=== PATIENT | female | born 1950 | race Caucasian/White ===

== ENCOUNTER 2021-03-30 09:05 | Outpatient (REF) | payer MEDICARE, SELFPAY ==
--- NOTE | ~2021-03-30 | MM_ITS ---
EXAMINATION: BONE DENSITOMETRY CLINICAL INDICATION: Osteoporosis. COMPARISON: Previous BD dated 07/21/2017 and baseline BD dated 11/16/2006. TECHNIQUE: Using a [employer] DXA System (software version: 13.1) manufactured by [employer], dual-energy x-ray absorptiometry was performed of the lumbar spine and left hip. The images are of good technical quality. Summary results are attached. FINDINGS: AP SPINE L1-L4: Current: BMD 0.865 g/cm2, Z-score -0.4, T-score -2.6, osteoporosis, 1.2% increase from previous, 12.4% decrease from baseline (<5% change is not significant). Prior: BMD 0.855 g/cm2. Baseline: BMD 0.988 g/cm2. LEFT FEMUR, NECK: Current: BMD 0.769 g/cm2, Z-score 0.2, T-score -1.9, osteopenia. Prior: BMD 0.738 g/cm2. Baseline: BMD 0.756 g/cm2. LEFT FEMUR, TOTAL: Current: BMD 0.789 g/cm2, Z-score 0.2, T-score -1.7, osteopenia, 0.1% decrease from previous, 6.4% decrease from baseline (<5% change is not significant). Prior: BMD 0.790 g/cm2. Baseline: BMD 0.843 g/cm2. IDENTIFIED RISK FACTORS: Early menopause, secondary osteoporosis. HISTORY OF FRACTURE: None listed. MEDICATIONS: Vitamin D. MM/XR DEXA axial skeleton IMPRESSION: 1. DIAGNOSIS: Osteoporosis based on the lowest T-score value of -2.6 in the lumbar spine applying World Health Organization criteria. 2. 10-YEAR FRACTURE RISK PREDICTION, FRAX: Major osteoporotic fracture (clinical spine, forearm, hip or shoulder) 10.0%. Hip fracture 2.3%. 3. Treatment Recommendations: NOF guidelines recommend consideration for treatment in postmenopausal women and men age 50 and older presenting with the following: -A hip or vertebral (clinical or morphometric) fracture. -T-score less than or equal to -2.5 at the femoral neck or spine after appropriate evaluation to exclude secondary causes. -Low bone mass at the hip or spine and a 10-year fracture probability by FRAX of greater than or equal to 3% for hip fracture or greater than or equal to 20% for major osteoporotic fracture based on the [place] adapted WHO algorithm. 4. Other Recommendations: All treatment decisions require clinical judgment and consideration of individual patient factors, including patient preferences, comorbidities, previous drug use, risk factors not captured in the FRAX model (e.g. frailty, falls, vitamin D deficiency, increased bone turnover, interval significant decline in bone density) and possible under or overestimation of fracture risk by FRAX. Additional medical evaluation for secondary cause of low bone mineral density may be appropriate. FUTURE SCAN RECOMMENDATION: People with diagnosed cases of osteoporosis or at high risk for fracture should have regular bone mineral density tests. For patients eligible for Medicare, routine testing is allowed once every 2 years. The testing frequency can be increased to one year for patients who have rapidly progressing disease, those who are receiving or discontinuing medical therapy to restore bone mass, or have additional risk factors.
== END 2021-03-30 09:06 | disposition home or self-care (01) ==
LOC: HO.MAMMO 09:05
PROVIDERS: Visit Provider Internal Medicine
DX: Z13.820 Encounter for screening for osteoporosis (principal); M81.0 Age-related osteoporosis without current pathological fracture; Z79.899 Other long term (current) drug therapy
CPT/HCPCS: 77080

== ENCOUNTER 2021-06-07 11:06 | Outpatient (REF) | payer MEDICARE, SELFPAY | END 2021-06-07 11:07 | disposition home or self-care (01) | LOC: HO.LAB 11:06 | PROVIDERS: PCP Internal Medicine; Visit Provider Internal Medicine | DX: Z20.822 Contact with and (suspected) exposure to COVID-19 (principal) | CPT/HCPCS: C9803; U0003; U0005 ==

== ENCOUNTER → 2022-06-22 10:12 | Outpatient (BNVA) | payer MEDICARE, SELFPAY | PROVIDERS: PCP Internal Medicine; Visit Provider Surgery | DX: R19.4 Change in bowel habit (principal) | CPT/HCPCS: 99202 ==

== ENCOUNTER 2024-04-26 11:00 | Outpatient (REF) | payer MEDICARE, SELFPAY ==
--- NOTE | ~2024-04-26 | MM_ITS ---
EXAMINATION: BONE DENSITOMETRY CLINICAL INDICATION: Menopause. COMPARISON: Previous BD dated 03/30/2021 and baseline BD dated 11/16/2006. TECHNIQUE: Using a [employer] DXA System (software version: 13.1) manufactured by [employer], dual-energy x-ray absorptiometry was performed of the lumbar spine and left hip. The images are of good technical quality. Summary results are attached. FINDINGS: LEFT FEMUR, NECK: Current: BMD 0.740 g/cm2, Z-score 0.2, T-score -2.1, osteopenia. Prior: BMD 0.769 g/cm2. Baseline: BMD 0.756 g/cm2. LEFT FEMUR, TOTAL: Current: BMD 0.738 g/cm2, Z-score 0.0, T-score -2.1, osteopenia, 6.5% decrease from previous, 12.5% decrease from baseline (<5% change is not significant). Prior: BMD 0.789 g/cm2. Baseline: BMD 0.843 g/cm2. AP SPINE L1-L4: Current: BMD 0.823 g/cm2, Z-score -0.6, T-score -3.0, osteoporosis, 4.9% decrease from previous, 16.7% decrease from baseline (<5% change is not significant). Prior: BMD 0.864 g/cm2. Baseline: BMD 0.988 g/cm2. IDENTIFIED RISK FACTORS: Menopause, low body weight, low calcium intake, alcohol (3 or more units per day). HISTORY OF FRACTURE: None listed. MEDICATIONS: Vitamin D. MM/XR DEXA axial skeleton IMPRESSION: 1. DIAGNOSIS: Osteoporosis based on the lowest T-score value of -3.0 in the lumbar spine applying World Health Organization criteria. 2. 10-YEAR FRACTURE RISK PREDICTION, FRAX: According to the guidelines, FRAX calculation should only be performed on patients in the osteopenia bone density category. Therefore, FRAX was not performed on this patient. 3. Treatment Recommendations: NOF guidelines recommend consideration for treatment in postmenopausal women and men age 50 and older presenting with the following: -A hip or vertebral (clinical or morphometric) fracture. -T-score less than or equal to -2.5 at the femoral neck or spine after appropriate evaluation to exclude secondary causes. -Low bone mass at the hip or spine and a 10-year fracture probability by FRAX of greater than or equal to 3% for hip fracture or greater than or equal to 20% for major osteoporotic fracture based on the [place] adapted WHO algorithm. 4. Other Recommendations: All treatment decisions require clinical judgment and consideration of individual patient factors, including patient preferences, comorbidities, previous drug use, risk factors not captured in the FRAX model (e.g. frailty, falls, vitamin D deficiency, increased bone turnover, interval significant decline in bone density) and possible under or overestimation of fracture risk by FRAX. Additional medical evaluation for secondary cause of low bone mineral density may be appropriate. FUTURE SCAN RECOMMENDATION: People with diagnosed cases of osteoporosis or at high risk for fracture should have regular bone mineral density tests. For patients eligible for Medicare, routine testing is allowed once every 2 years. The testing frequency can be increased to one year for patients who have rapidly progressing disease, those who are receiving or discontinuing medical therapy to restore bone mass, or have additional risk factors.
== END 2024-04-26 11:01 | disposition home or self-care (01) ==
LOC: HO.MAMMO 11:00
PROVIDERS: PCP Internal Medicine; Visit Provider Internal Medicine
DX: Z13.820 Encounter for screening for osteoporosis (principal); Z78.0 Asymptomatic menopausal state
CPT/HCPCS: 77080

== ENCOUNTER 2024-08-13 18:06 | Outpatient (REF) | payer MEDICARE, SELFPAY ==
--- NOTE | ~2024-08-13 | MR_ITS ---
EXAMINATION: MR BRAIN WITHOUT CONTRAST CLINICAL INFORMATION: Memory loss. COMPARISON: Brain MRI from 04/27/2020. TECHNIQUE: MRI of the brain was obtained using routine sequences without contrast. FINDINGS: No focal restricted diffusion is demonstrated to suggest acute or subacute cerebral ischemia. No evidence of acute or chronic hemorrhagic products on heme-sensitive imaging. Scattered and partially confluent periventricular, deep white matter, and brainstem T2 FLAIR hyperintensities consistent with moderate underlying microangiopathy. Proportional prominence of the ventricles and sulcal spaces without evidence of obstructive hydrocephalus. No abnormal mass effect. No midline shift. Normal appearance of the pituitary gland. Normal positioning of the cerebellar tonsils. Normal arterial and venous vascular flow voids are present. Normal, homogeneous marrow signal. Mild mucosal thickening of the paranasal sinuses. Mild rightward nasal septal deviation. No signal abnormalities within the mastoids. MR/MR head/brain wo con IMPRESSION: 1. No acute intracranial abnormalities. 2. Moderate underlying microangiopathy and generalized cerebral volume loss. Electronically signed by: Canelo Llamas DO 08/13/2024 09:21 PM EDT
== END 2024-08-13 18:07 | disposition home or self-care (01) ==
LOC: HO.MRI 18:06
PROVIDERS: PCP Internal Medicine; Visit Provider Internal Medicine
DX: R41.3 Other amnesia (principal)
CPT/HCPCS: 70551

== ENCOUNTER 2025-05-05 09:53 | Outpatient (REF) | payer MEDICARE, SELFPAY ==
--- NOTE | 2025-05-05 | EEG_ITS ---
Description: This is a routine waking EEG using the 10-20 electrode placement system. The waking background activity consists of low-voltage fast frequency seen diffusely intermixed with low-voltage posterior 8-9 hertz alpha frequency. Photic stimulation is without activation. Hyperventilation produces no change in the background activity. No focal, lateralizing or paroxysmal discharges are seen. Impression: This waking EEG is within normal limits MTDD
--- OUTSIDE RECORDS SUMMARY | 2025-05-05 10:28 | XMS_ITS | Patient Health Record ---
Author Organization [facility] Address [address] [facility] [address] [place] [address] Care Team Providers Care Construction Project Coordinator Name Role Phone KHRIS HARPER Primary Care Provider Allergies Allergen (clinical drug ingredient) Drug/Non Drug Allergy documented on EMR Reaction Allergy Type Onset Date Status Contrast Dye (uncoded) rash Allergy Active Penicillin (uncoded) rash Allergy Active Substance with sulfonamide structure and antibacterial mechanism of action (substance) Sulfa (uncoded) rash Allergy Active Reason For Referral No Information Medications Medication SIG (Take, Route, Frequency, Duration) Notes Start Date End Date Status tiZANidine HCl 2 MG 0.5 tablet Oral once at bedtime Active chlordiazePOXIDE-Amitripty line 5-12.5 MG 1 tablet Orally once at bedtime Active Aspirin Adult Low Dose 81 MG as directed Orally Active Vitamin D3 50 MCG (1999 [place]) 1 capsule Orally Once a day; Duration: 30 day(s) Active PARoxetine HCl ER 12.5 MG 1 tablet Orally Once a day Active Social History Tobacco Use: Social History Observation Description Date Details (start date - stop date) Former Smoker NA - NA Tobacco Use (form): Question Answer Notes Are you a: former smoker When did you start smoking? started at the age o f 17 When did you stop smoking? quit in 1990 How long has it been since you last smoked? > 10 years Additional Findings: Tobacco Non-User Ex-light c igarette smoker (1-9/day) Problems Problem Type SNOMED Code ICD Code Onset Dates Problem Status W/U Status Risk Notes Problem Aortic atherosclerosis (I70.0) Active confirmed Plan Of Treatment Pending Test Test Name Order Date Stress Echocardiogram 12/17/2019 Echocardiogram w/ Doppler 12/17/2019 Abdominal Aortic US 12/17/2019 Insurance Providers Payer Name Payer Address Payer Phone Subscriber Number Group Number Insured Name Patient Relationship to Insured Coverage Start Date Coverage End Date [facility] [employer] PPO [address] [place] [address] [id number] DIANE FOX Self - patient is the insured Medical (General) History Medical History History ICD Code Anxiety Muscles spasms Headaches Osteopenia 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
--- OUTSIDE RECORDS SUMMARY | 2025-05-05 10:28 | XMS_ITS | Clinical Summary ---
Author Organization [facility] Address [address] [place] [phone] Phone Care Team Providers Care Mock Up Builder Name Role Phone Wero Clemens MD Primary Care Provider [phone] Encounters Date Type Department Care Team Description 03/19/2025 10:31 AM EDT - 03/19/2025 11:59 PM EDT [facility] [address] [phone] Encounter for screening mammogram for breast cancer Discharge Disposition: Home or Self Care from Last 3 Months Surgical History Surgery Date Site/Laterality Comments STEREOTACTIC CORE BIOPSY Left Family History Medical History Relation Name Comments Breast cancer Maternal Grandmother Relation Name Status Comments Maternal Grandmother Social History Tobacco Use Types Packs/Day Years Used Date Smoking Tobacco: Never Assessed Comments No Sex and Gender Information Value Date Recorded Sex Assigned at Not on file Legal Sex Female 1:08 PM EST Gender Identity Not on file Sexual Orientation Not on file Obstetrics History Para Term AB IAB SAB Ectopic Multiple Livin g Live Births 2 Last Filed Vital Signs Vital Sign Reading Time Taken Comments Blood Pressure - - Pulse - - Temperature - - Respiratory Rate - - Oxygen Saturation - - Inhaled Oxygen Concentration - - Weight 46.3 kg (102 lb) 03/19/2025 10:46 AM EDT Height 170.2 cm (5' 7 ) 03/19/2025 10:46 AM EDT Body Mass Index 15.98 03/19/2025 10:46 AM EDT Plan of Treatment Health Maintenance Due Date Last Done Comments DTaP,Tdap,and Td Vaccines (1 - Tdap) 1968 Pneumococcal Vaccine: 50+ Years (1 of 1 - PCV) 1999 Zoster Vaccines (1 of 2) 1999 Depression Screening 09/27/2022 Falls Risk Assessment 09/27/2022 Medicare Annual Wellness Visit 09/27/2022 Osteoporosis Screening (Bone Density Screening) 09/27/2022 Social Influencers of Health Screening 09/27/2022 RSV Immunization Adult Patients (1 - 1-dose 75+ series) 2024 COVID-19 Vaccine ( season) 2024 09/03/2021, 02/02/2021, 01/05/2021 Influenza Vaccine (#1) 2025 Cholesterol Screening (Lipid Panel) 08/05/2027 08/05/2022 Hepatitis C Screening Completed 08/02/2019 Breast Cancer Screening Discontinued 03/19/20, 03/14/2024, 08/08/2022, Additional history exists HIB Vaccines Aged Out No longer eligi ble based on patient's age to complete this topic HPV Vaccines Aged Out No longer eligi ble based on patient's age to complete this topic Hepatitis A Vaccines Aged Out No long er eligible based on patient's age to complete this topic Hepatitis B Vaccines Aged Out No long er eligible based on patient's age to complete this topic IPV Vaccines Aged Out No longer eligi ble based on patient's age to complete this topic MMR Vaccines Aged Out No longer eligi ble based on patient's age to complete this topic Meningococcal ACWY Vaccine Aged Out N o longer eligible based on patient's age to complete this topic Meningococcal B Vaccine Aged Out No l onger eligible based on patient's age to complete this topic RSV Immunization Patients Under 20 months Aged Out No longer eligible based on patient's age to complete this topic Varicella Vaccines Aged Out No longer eligible based on patient's age to complete this topic Procedures Procedure Name Priority Date/Time Associated Diagnosis Comments MG MAMMO DIGITAL SCREENING W QUINCY BILAT Routine 03/19/2025 11:06 AM EDT Encounter for screening mammogram for breast cancer from Last 3 Months Results * MG Mammo Digital Screening w Quincy bilat (03/19/2025 11:06 AM EDT) Anatomical Region Laterality Modality Breast Bilateral Mammography 03/19/2025 5:05 PM EDT Impressions 03/19/2025 5:11 PM EDT No mammographic evidence of malignancy. No suspicious interval change. A negative mammogram in the presence of a clinically suspicious palpable abnormality does not preclude the possibility of malignancy or alter the indications for biopsy. ASSESSMENT: BI-RADS 2: BENIGN RECOMMENDATION(S): 1: Routine screening mammogram BILATERAL in 1 year. [facility] [address], [address] -------- FINAL REPORT -------- Dictated By: Shahbaz Grossman Dictated Date: 03/19/2025 17:05 ET Assigned Physician: Shahbaz Grossman Reviewed and Electronically Signed By: Shahbaz Grossman Signed Date: 03/19/2025 17:11 ET Workstation ID: [id number] Transcribed By: Self Edit Transcribed Date: 03/19/2025 17:05 ET Narrative 03/19/2025 5:11 PM EDT EXAM: SCREENING MAMMOGRAPHY, BILATERAL HISTORY: SCREENING. Maternal grandmother with history of breast cancer. COMPARISON: 03/14/24, 08/08/22, 08/06/21, 08/04/20 TECHNIQUE: Synthesized CC and MLO projections of each breast. Tomosynthesis of each breast in the CC and MLO projections. ADDITIONAL IMAGING: None Computer-aided detection was employed with the Leho AI 3-D. TISSUE DENSITY: There are scattered areas of fibroglandular density. (BI-RADS category B) FINDINGS: RIGHT BREAST: No suspicious mass. No suspicious calcification. No distortion. Small masses in the lower outer right breast have waxed and waned. LEFT BREAST: No suspicious mass. No suspicious calcification. No distortion. No suspicious finding in the region of a biopsy site marker. Procedure Note Shahbaz Grossman MD - 03/19/2025 EXAM: SCREENING MAMMOGRAPHY, BILATERAL HISTORY: SCREENING. Maternal grandmother with history of breastcancer. COMPARISON: 03/14/24, 08/08/22, 08/06/21, 08/04/20 TECHNIQUE: Synthesized CC and MLO projections of each breast.Tomosynthesis of each breast in the CC and MLO projections. ADDITIONAL IMAGING: None Computer-aided detection was employed with the iCAD ProFound AI 3-D. TISSUE DENSITY: There are scattered areas of fibroglandular density.(BI-RADS category B) FINDINGS: RIGHT BREAST: No suspicious mass. No suspicious calcification. No distortion. Smallmasses in the lower outer right breast have waxed and waned. LEFT BREAST: No suspicious mass. No suspicious calcification. No distortion. Nosuspicious finding in the region of a biopsy site marker. IMPRESSION: No mammographic evidence of malignancy. No suspicious interval change. A negative mammogram in the presence of a clinically suspicious palpableabnormality does not preclude the possibility of malignancy or alter theindications for biopsy. ASSESSMENT: BI-RADS 2: BENIGN RECOMMENDATION(S): 1: Routine screening mammogram BILATERAL in 1 year. [facility] [address], [address] -------- FINAL REPORT -------- Dictated By: Shahbaz Grossman Dictated Date: 03/19/2025 17:05 ET Assigned Physician: Shahbaz Grossman Reviewed and Electronically Signed By: Shahbaz Grossman Signed Date: 03/19/2025 17:11 ET Workstation ID: [id number] Transcribed By: Self Edit Transcribed Date: 03/19/2025 17:05 ET us Self Referral Sppl IMG BI PROCEDURES Final Resul t from Last 3 Months Insurance BLUE CROSS - [place] MEDICARE ADVANTAGE Care Teams Mock Up Builder Relationship Specialty Start Date End Date Wero Clemens MD [address] [facility] [place] [address] PCP - General Internal Medicine 03/19/25
--- OUTSIDE RECORDS SUMMARY | 2025-05-05 10:29 | XMS_ITS | Patient Health Record ---
Author Organization [facility] Address [facility] [address] [place] [address] Care Team Providers Care Customer Engineer Name Role Phone Negro LEA, Negro Primary Care Provider Makayla Muñiz Unavailable [phone] Allergies Allergen (clinical drug ingredient) Drug/Non Drug Allergy documented on EMR Reaction Allergy Type Onset Date Status IVP Dye (uncoded) hives Allergy Ac tive Cat dander Cat Dander rash Allergy Active Penicillin rash Drug Allergy Active Reason For Referral No Information Medications Medication SIG (Take, Route, Frequency, Duration) Notes Start Date End Date Status PARoxetine HCl ER 12.5 MG 1 tablet in th e morning Orally Once a day Active chlordiazePOXIDE-Amitripty line 5-12.5 MG 1 tablet Orally Once a day Active tiZANidine HCl QHS Activ e Mometasone Furoate 0.1 % 1 application E xternally Twice a day PRN 10/18/2021 Active Social History Tobacco Use: Social History Observation Description Date Details (start date - stop date) Former Smoker NA - NA Tobacco Use/Smoking Question Answer Notes Tobacco use: former smoker How long has it been since you last smoked? > 10 years Alcohol Screen (Audit-C) Question Answer Notes Did you have a drink contain ing alcohol in the past year? Yes How often did you have 6 or more drinks on one occasion in the past year? Never (0 point) How many drinks did you have on a typical day when you were drinking in the past year? 1 or 2 drinks (0 point) How often did you have a dri nk containing alcohol in the past year? 4 or more times a week (4 points) Plan Of Treatment No Information Insurance Providers Payer Name Payer Address Payer Phone Subscriber Number Group Number Insured Name Patient Relationship to Insured Coverage Start Date Coverage End Date BCBS MCR Replacement PPO [address] [place] [address] [id number] Marissa Deras Self - patient is the insured Medical (General) History Medical History History ICD Code chronic muscle problems and headaches fr om the past.
== END 2025-05-05 09:54 | disposition home or self-care (01) ==
LOC: HO.NEURO 09:53
PROVIDERS: PCP Internal Medicine; Visit Provider Psychiatry & Neurology Neurology
DX: G31.84 Mild cognitive impairment of uncertain or unknown etiology (principal)
CPT/HCPCS: 95819

== ENCOUNTER → 2025-05-05 09:53 | Outpatient (BNV) | payer MEDICARE, SELFPAY | PROVIDERS: PCP Internal Medicine; Visit Provider Psychiatry & Neurology Neurology | DX: G31.84 Mild cognitive impairment of uncertain or unknown etiology (principal) | CPT/HCPCS: 95816 ==

== ENCOUNTER 2025-06-11 12:53 | Outpatient (AMB) | payer MEDICARE, SELFPAY ==
--- OUTSIDE RECORDS SUMMARY | 2024-11-27 20:00 | XMS_ITS | Continuity of Care Document ---
Author Organization [facility] Address [facility] [place] [address] Phone Care Team Providers Care Dobie Man Name Role Phone Lars Pantoja OD Unavailable Unavailable Allergies, Adverse Reactions, Alerts Substance Reaction Status Criticality PENICILLIN Active No Information Sulfa (Sulfonamide Antibiotics) Active No Information Penicillins Active No Information Iodinated Contrast Media Active No Information Advance Directives Directive Yes / No Effective Date File Name No Information Encounters Encounter Description Practice Location Reason(s) For Visit Diagnoses Date Provider Providers Copied on Encounter [facility], [address] [place], [place], [id number] , [place] tel: [phone] [facility] Location Cataract extraction status, right eyeCataract extraction status, left eye [address] Scar[address]. [address] [place], [address], [place]. tel: [phone] [facility], [facility] [place], [place], [id number] , [place] tel: [phone] [facility] Cataract extraction status, right eyeCataract extraction status, left eye Sep- 4 Scarlett Ochoa [address] [place], [address], [place]. tel: [phone] [facility], [facility] [place], [place], [id number] , [place] tel: [phone] [facility] Cataract extraction status, right eyeRegular astigmatism, right eyeCataract extraction status, left eye Sep-2 [address] [place], [address], [place]. tel: [phone] [facility], [address] [facility], [place], [place], [id number] , [place] tel: [phone] [facility] Combined forms of age-related cataract, right eyeCombined forms of age-related cataract, right eyeRegular astigmatism, right eye Sep- 4 [place], [address], [place]. tel: [phone] [facility], [address], [place], [id number] , [place] tel: [phone] [facility] Cataract extraction status, left eye [address] [place], [address], [place]. tel: [phone] [facility], [address] [place], [place], [id number] , [place] tel: [phone] [facility] Cataract extraction status, left eyeCombined forms of age-related cataract, right eye [address] [place], [address], [place]. tel: [phone] [facility], [address] [place], [place], [id number] , [place] tel: [phone] [facility] Combined forms of age-related cataract, left eyeCombined forms of age-related cataract, left eye 4 [place], [address], [place]. tel: [phone] [facility], [address], [place], [id number] , [place] tel: [phone] [facility] QES Vitreous degeneration, left eyeAge-related nuclear cataract, bilateralDry eye syndrome of bilateral lacrimal glands 4 Ta[address]to [address]. [address] [place], [address], [place]. tel: [phone] [facility], [address], [place], [id number] , [place] tel: [phone] [facility] Q Dermatochalasis of left upper eyelidAge-related nuclear cataract, bilateralPresbyopia Dermatochalasis of right upper eyelidOther chronic allergic conjunctivitisMyopi a, bilateralRegular astigmatism, bilateralVitreous degeneration, bilateralEncounter for examination of eyes and vision with abnormal findings 3 [place] [address]onya. [address] [place], [address], [place]. tel: [phone] [facility], [address], [place], [id number] , [place] tel: [phone] [facility] Q Vitreous degeneration, bilateralPresbyopia Dermatochalasis of right upper eyelidEncounter for examination of eyes and vision with abnormal findingsDermatochal asis of left upper eyelidAge-related nuclear cataract, bilateralOther chronic allergic conjunctivitis 2 [place] Donya. [address] [place], [address], [place]. tel: [phone] Family History Family Member Type Diagnosis Age At Onset Sister Problem (finding) Payers Payer name Insurance type Covered libertarian ID Authoriza tion(s) No Information Social History Type Description Quantity Date Captured Comments Alcohol Use Details Unknown Caffeine Use Details Unknown Tobacco Use Status Never smoker (Never Smoked) Smoking Status Never smoker (Never Smoked) Non-Smoking Tobacco Use Details : No Details Available : No Details Available Sex Female Chief Complaint And Reason For Visit No Information Reason For Referral Reason For Referral No Information History Of Present Illness Encounter Date Complaint History Of Prese nt Illness No Information Functional Status Date Functional Assessmen t No Information Instructions Date Instruction Additional Infor luis Impression/Plan Related to Patie nt has had cataract surgery. Impression/Plan Related to Patie nt has had cataract surgery. Impression/Plan Related to Patie nt has had cataract surgery. Impression/Plan Related to Patie nt has had cataract surgery. Impression/Plan Related to Patie nt has had cataract surgery. Impression/Plan Related to Patie nt has had cataract surgery. Impression/Plan Related to Astig matism Impression/Plan Related to Astig matism Impression/Plan Related to Catar act Impression/Plan Related to Catar act Impression/Plan Related to Patie nt has had cataract surgery. \Dany happy with her distance vision OS, sees intermediate and reads small prints unaided in OS with proper illumination and working distance. Impression/Plan Related to Patie nt has had cataract surgery. 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 Impression/Plan Related to [facility] revealed dermatochalasis. Impression/Plan Related to [facility] revealed allergic conjunctivitis. Impression/Plan Related to [facility] revealed a posterior vitreous detachment. Impression/Plan Related to [facility] revealed cataract. Impression/Plan Related to [facility] revealed dermatochalasis. Impression/Plan Related to Routi ne examination with abnormal findings. Impression/Plan Related to Myopi a (nearsightedness) Impression/Plan Related to Astig matism Impression/Plan Related to Refra ctive testing reveals presbyopia. Impression/Plan Related to [facility] revealed dermatochalasis. Impression/Plan Related to [facility] revealed allergic conjunctivitis. Impression/Plan Related to [facility] revealed a posterior vitreous detachment. Impression[facility]Plan [facility] Impression/Plan Related to [facility] examination with abnormal findings. Impression/Plan Related to [facility] revealed dermatochalasis. Impression/Plan Related to Refra ctive testing reveals presbyopia. Assessments Type Assessment Date No Information Patient Care Teams Name Effective Dates (start - stop) Status Members No Information
--- NOTE | 2025-06-11 13:03 | A.OFFVIS_ITS ---
Intake Visit Reasons: MCI Allergies Iodinated Contrast Media (IV Dye, Iodine Containing) Allergy (Intermediate, Unverified 06/22/22 10:19) HIVES meperidine (From DEMEROL) Allergy (Intermediate, Unverified 06/22/22 10:19) NAUSEA & VOMITING Penicillins (PENICILLINS) Allergy (Intermediate, Unverified 06/22/22 10:19) RASH Sulfa (Sulfonamide Antibiotics) (SULFA (SULFONAMIDE ANTIBIOTICS)) Allergy (Intermediate, Unverified 06/22/22 10:19) HIVES penicillin V Allergy (Unknown, Verified 06/22/22 10:19) rash ivp dye Allergy (Unknown, Uncoded 06/22/22 10:19) itching, hives shellfish Allergy (Unknown, Uncoded 06/22/22 10:19) itching, hives Medication List - Last Reconciled 06/11/25 by Pool Acharya MD paroxetine HCl 10 mg PO DAILY HPI Comments Details: 75yr old woman is here with for concerns about memory, particularly of names and conversations. Occasionally repeats her stories. Had COVID in January 2024? and took about a full year to fully recover. feels there is some withdrawal and depression and that she searches for words.??No migraines or headaches. No dizziness. Starting to walk and exercise again. Balance has been okay, no falls. Sleeps well.? Headaches in last month a few days and takes an Advil. Previous?MRI abnormalities consistent with MS with normal evoked potential studies and normal clinical exam. She also has migraine headaches which have been under control with no recent recurrence. She reports no new symptoms. She has had an echocardiogram because of some concerns about one of her valves. No new symptoms. No dizziness and vertigo. Balance is not as bad as it was. Rare leg and foot cramps. No leg kicking. No cramps. 05/07/25 EEG normal. 08/13/24 MRI: Moderate patchy and confluent underlying microangiopathy and significant generalized cerebral volume loss especially parietal . [facility] Medical History (Updated 06/11/25 @ 13:31 by Pool Acharya MD) MCI (mild cognitive impairment) Memory change Cramp in limb Migraine Multiple sclerosis Depression Altered bowel habits Family History Maternal Grandmother Breast cancer Social History Alcohol intake: current Alcohol intake frequency: holidays/special occasions only Alcohol type: wine Review of Systems Const Details: General/Constitutional:? Change in appetitedenies.? Fatiguedenies.? Feverdenies.? Weight gaindenies.? Weight lossdenies. ???Sleep:? Difficulty getting to sleepdenies.? Difficulty maintaining sleepdenies?.? Daytime sleepinessdenies. ???Respiratory:? Shortness of breathdenies.? Chest paindenies. ???Cardiovascular:? Chest pain at restdenies.? Chest pain with exertiondenies.? Dizzinessdenies.? Fluid accumulation in the legsdenies.? Irregular heartbeatdenies.? Palpitations denies. ???Gastrointestinal:? Constipationdenies.? Diarrheadenies.? Difficulty swallowingdenies.? Heartburn denies.? Nauseadenies. ???Genitourinary:? Frequent urinationdenies.? Urgencydenies.? Incontinencedenies. ???Musculoskeletal:? Neck paindenies.? Back paindenies.? Joint stiffnessdenies.? Sciaticadenies. ???Neurologic:? Difficulty swallowingdenies.? Balance difficultydenies.? Coordinationnormal.? Difficulty speakingdenies.? Dizzinessdenies.? Faintingdenies.? Gait abnormality denies.? Headachedenies.? Loss of strengthdenies.? Loss of use of extremity denies.? Low back paindenies.? Memory loss yes.? Seizuresdenies.? Ticsdenies.? Tingling/Numbnessdenies.? Transient loss of visiondenies.? Tremordenies. ???Psychiatric:? Anxietydenies.? Auditory/visual hallucinationsdenies.? Delusionsdenies.? Depressed mooddenies.? Stressorsdenies.? Suicidal thoughtsdenies. Neuro Reports memory loss Psych Reports memory loss Physical Exam Neuro Other: Neurological: Abnormal neurological findings:??none.?Mental Status:??alert and oriented X 3,?Normal attention, orientation, memory and affect.?Cranial Nerves:??Pupils are equal, round and reactive to light. Fundoscopy shows normal disc bilaterally. External occular muscles are intact. Visual mccain are full, no ptosis. Face is symmetrical, no facial weakness or droop. Facial sensations are normal. Tongue protrudes in midline. Palate elevates symmetrically. Shoulder shrugging is normal..?Motor Examination:??Normal muscle tone, bulk and strength,?No atrophy or fasciculations,?No drift of the extended upper extremities,?Deep tendon reflexes are 2+?,?Plantars are flexor?.?Straight Leg Raising:??90 degrees.?Sensory Exam:??Normal light touch, temperature, pinprick, vibration and joint-position sensations?,?Rhomberg sign is absent.?Coordination:??no ataxia,?no titubation,?cltlho-lj-fwpe, uouf-rcsk-vqhi test and rapid alternating movements were normal.?Gait Exam:??Within normal limits.?Cerebellar Signs:??Xkfaio-yk-jsas and abba-ou-rhre is normal,?no dysdiadochokinesia?.?Ex trapyramidal System:??No tremor, rigidity with normal facial expressions,?No bradykinesia, no bradyphrenia. Normal arm swing and posture. No propulsion or retropulsion.?Speech:??Normal,?no dysphasia or dysarthria..? Mini Mental Status Exam: Level of Consciousness:??Alert.?Orientation:??Knows correct year, month, date, day and season,?Knows correct city, county and state. Knows correct location and floor.?Registration:??Able to register 3 objects.?Attention:??Serial 7's performed accurately.?Recall:??Able to recall 3 out of 3 objects.?Language:??Normal spontaneous speech, fluency, repetition,naming, comprehension, reading and writing.?Total Score:??30/30.? General Examination: GENERAL APPEARANCE:??normal,?in no acute distress.?HEART:??S1, S2 normal,?no murmurs.?LUNGS:??clear anteriorly and posteriorly.?MUSCULOSKELETAL:??normal.?EXTREMITIES:??no edema.?PSYCH:??alert, oriented,?cognitive function intact,?cooperative with exam.? Results Reviewed Results Reviewed: 05/07/25 This waking EEG is within normal limits Assessment & Plan Assessment & Plan (1) MCI (mild cognitive impairment): Code(s): G31.84 - Mild cognitive impairment of uncertain or unknown etiology Category: Medical (2) Migraine: Code(s): G43.909 - Migraine, unspecified, not intractable, without status migrainosus Category: Medical (3) Multiple sclerosis: Code(s): G35 - Multiple sclerosis Category: Medical Plan Migraines have been under control with no recurrence. No signs of active MS. She has extensive white matter disease which is probably leading to some of her cognitive difficulties and also has significant cortical atrophy. Will start donepezil 5 mg a day. I will stop her amitriptyline and tizanidine. Medications: New donepezil 5 mg PO DAILY 30 tabs 1RF Coding Level of Care Code Est Pt Level 4 (11094) Diagnoses MCI (mild cognitive impairment) G31.84 Migraine G43.909 Multiple sclerosis G35
--- OUTSIDE RECORDS SUMMARY | 2025-06-11 13:25 | XMS_ITS | Clinical Summary ---
Author Organization [facility] Address [address] [place] [phone] Phone Care Team Providers Care Batch And Furnace Manager Name Role Phone Wero Clemens MD Primary Care Provider [phone] Encounters Date Type Department Care Team Description 03/19/2025 10:31 AM EDT - 03/19/2025 11:59 PM EDT [facility] [address] [address] Encounter for screening mammogram for [...] 1999 Zoster Vaccines (1 of 2) 1999 Falls Risk Assessment 09/27/2022 Medicare Annual Wellness Visit 09/27/2022 Osteoporosis Screening (Bone Density Screening) 09/27/2022 Social Influencers of Health Screening 09/27/2022 RSV Immunization Adult Patients (1 - 1-dose 75+ series) 2024 COVID-19 Vaccine ( - season) 2024 09/03/2021, 02/02/2021, 01/05/2021 Depression Screening 10/30/2024 Influenza Vaccine (#1) 2025 Cholesterol Screening (Lipid [...] year. [facility] [address], [address] -------- FINAL REPORT -------- Dictated By: Shahbaz Grossman Dictated Date: 03/19/2025 17:05 ET Assigned Physician: Shahbaz Grossman Reviewed and Electronically Signed By: Shahbaz Grossman Signed Date: 03/19/2025 17:11 ET Workstation ID: [id number] Transcribed By: Self Edit Transcribed Date: 03/19/2025 17:05 ET Narrative 03/19/2025 5:11 PM EDT EXAM: SCREENING MAMMOGRAPHY, BILATERAL HISTORY: SCREENING. Maternal grandmother with history of breast cancer. COMPARISON: 03/14/24, 08/08/22, 08/06/21, 08/04/20 TECHNIQUE: Synthesized CC and MLO projections of each breast. Tomosynthesis of each breast in the CC and MLO projections. ADDITIONAL IMAGING: None Computer-aided detection was employed with the Leaky AI 3-D. TISSUE DENSITY: There are scattered [...] year. [facility]amm[facility] at [address], [address] -------- FINAL REPORT -------- Dictated By: Shahbaz Grossman Dictated Date: 03/19/2025 17:05 ET Assigned Physician: Shahbaz Grossman Reviewed and Electronically Signed By: Shahbaz Grossman Signed Date: 03/19/2025 17:11 ET Workstation ID: [id number] Transcribed By: Self Edit Transcribed Date: 03/19/2025 17:05 ET us Self Referral Sppl IMG BI PROCEDURES Final Resul t from Last 3 Months Insurance BLUE CROSS - [place] MEDIC[place] ADVANTAGE Care Teams Batch And Furnace Manager Relationship Specialty Start Date End Date Wero Clemens MD [address] [facility] [place] [address] PCP - General Internal Medicine 03/19/25
--- OUTSIDE RECORDS SUMMARY | 2025-06-11 13:25 | XMS_ITS | Encounter Summary ---
Author Organization [facility] Address [address] [place] [address] Phone Care Team Providers Care Digital Artist Name Role Phone Wero Clemens MD Primary Care Provider [phone] Car Acharya MD Unavailable + Encounter Details Date Type Department Care Team (Late st Contact Info) Description 05/19/2025 Orders Only [facility] Internal Medicine [address] [place] [address] Provider, MD Lanny [address] [place], [place] [phone] Social History Tobacco Use Types Packs/Day Years Used Date Smoking Tobacco: Former Cigarettes 0.5 25 1 255 - 1980 Smokeless Tobacco: Never Comments:quit 25 years ago Alcohol Use Standard Drinks/Week Comments Yes 7 (1 standard drink = 0.6 oz pur e alcohol) wine in gingerale Education Answer Date Recorded Are you interested in more education? Not on osito e 02/24/2023 Are you concerned about learning? Not on file 02/24/2023 No 02/24/2023 No 02/24/2023 Digital Access Answer Date Recorded No 03/22/2023 No 03/22/2023 Reliable internet access at home? Not on file 03/22/2023 Device with a working camera? Not on file Intimate Partner Violence Answer Date R ecorded Denied Basic Needs Not on file 02/28/2025 In the past 12 months have y ou been in a relationship with a person who hurts, threatens, or tries to control you? No 02/28/2025 Worried food would run out Not on file 02/28 In the past 12 months have y ou been in a relationship with a person who hurts, threatens, or tries to control you? No 02/28/2025 Comments Unknown Sex and Gender Information Value Date Recorded Sex Assigned at Not on file Legal Sex Female 10:37 PM EDT Gender Identity Not on file Sexual Orientation Not on file documented as of this encounter Plan of Treatment Upcoming Encounters Date Type Department Care Team (Late st Contact Info) Description 03/09/2026 1:30 PM EDT Office Visit [facility] Internal Medicine [address], [place] [phone] Wero Clemens MD [address] [place], [place] [phone] documented as of this encounter Procedures Procedure Name Priority Date/Time Associated Diagnosis Comments OUTSIDE LAB Routine 05/06/2025 7:32 AM EDT documented in this encounter Results * Outside Lab (05/06/2025 7:32 AM EDT) us Historical Provider LAB BLOOD ORDERABLES Aretha l Result documented in this encounter Visit Diagnoses Not on filedocumented in this encounter Additional Health Concerns Assessment Noted Time PHQ-2 Depression Total Score: 0 02/29/20 25 3:37 PM EDT documented as of this encounter Care Teams Digital Artist Relationship Specialty Start Date End Date Wero Clemens MD [address] [place] [address] PCP - General 08/14/17 Car Acharya MD [address] [place] [address] [place], [place] [id number] Neurology 07/31/20 documented as of this encounter Additional Source Comments The information contained in this document represents components of the legal health record. It is not the complete legal health record.[facility]
--- OUTSIDE RECORDS SUMMARY | 2025-06-11 13:25 | XMS_ITS | Patient Health Record ---
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
== END 2025-06-11 13:29 | disposition home or self-care (01) ==
LOC: HO.HSM 12:53
PROVIDERS: PCP Internal Medicine; Referring Provider Internal Medicine; Visit Provider Psychiatry & Neurology Neurology
DX: G31.84 Mild cognitive impairment of uncertain or unknown etiology (principal); G43.909 Migraine, unspecified, not intractable, without status migrainosus; G35 Multiple sclerosis
CPT/HCPCS: 99214

== ENCOUNTER → 2025-06-11 12:53 | Outpatient (BNVA) | payer MEDICARE, SELFPAY | PROVIDERS: PCP Internal Medicine; Referring Provider Internal Medicine; Visit Provider Psychiatry & Neurology Neurology | DX: G35 Multiple sclerosis (principal); G43.909 Migraine, unspecified, not intractable, without status migrainosus; G31.84 Mild cognitive impairment of uncertain or unknown etiology | CPT/HCPCS: 99212 ==